=== PATIENT | male | born 1990 | race Caucasian/White ===

== ENCOUNTER 2024-08-16 12:41 | Emergency (ER) | payer BC, SELFPAY ==
[2024-08-16] VITALS (34 sets, daily range): BP systolic 113–162; BP diastolic 60–96; PULSE 45–70; TEMP 36.6; O2SAT 94–100; BMI 30.5
--- NOTE | 2024-08-16 12:54 | ECG_ITS ---
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 Measurements Intervals [place] Rate: 53 P: 47 AR: 160 QRS: 63 QRSD: 98 T: 57 QT: 410 QTc: 394 Interpretive Statements 1100 Sinus rhythm 9110 normal ECG No previous ECG available for comparison Electronically Signed On 08-16-2024 18:44:25 EDT by STEPHANIE ARRIAZA M.D.
--- NOTE | 2024-08-16 13:09 | ED.GENADUL1 ---
HPI HPI - General Adult General Chief complaint: Dizziness Stated complaint: HEADACHE, LIGHT HEADED Time Seen by Provider: 08/16/24 12:54 Source: patient Mode of arrival: walk-in Limitations: no limitations History of Present Illness HPI narrative: Patient is a 34-year-old male who is presenting today after a near syncopal episode. 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 Patient had an episode where he became diaphoretic, lightheaded, felt like he was going to pass out. This episode happened approximately 1 month ago as well. Patient went to [facility] at that time. Patient had a poor experience. Patient was in the hallway, had an x-ray, and IV, when he came back from x-ray they did not hook him back up to the IV and he was told he did not have a stroke, heart attack, and he was good to be discharged. Patient did follow-up with assistant office manager several weeks ago. Patient was going to have an outpatient stress test and echocardiogram ordered which she has not ordered yet. is at bedside. Patient does smoke marijuana, no alcohol. Patient quit smoking alcohol over years ago, patient was a daily drinker. Patient does vape, does not smoke cigarettes. No recent traveling. No head injury. Patient takes no medications daily patient currently has bilateral frontal headache, he did not have a headache last month when he had this episode. Patient felt like he was listening in a tunnel and looking into tunnel during this episode which was similar to 1 month ago as well. Patient did have when I perform HPI at approximately 1320 blurry vision to the periphery, his vision has improved and is back to normal baseline. All systems are negative except as noted/marked. All systems reviewed and otherwise negative. Nurses note and vital signs reviewed and patient is not hypoxic. General: The patient appears well and in no apparent distress. Patient is resting comfortably on cart. Patient is not toxic, lethargic, or listless Skin: Warm, dry, no pallor noted. There is no rash noted. No petechiae, purpura. Head: Normocephalic, atraumatic; no carotid bruits bilateral. Patient does not have reproducible tenderness to palpation to bilateral frontal or maxillary group. Eye: Normal conjunctiva, no drainage, EOMI. PERRL. Ears, Nose, Mouth, and Throat: oral mucosa is moist. Minimal clear drainage to the posterior pharynx. Nares patent. Mouth without vesicles. Cardiovascular: Regular Rate and Rhythm, no murmur, gallop, rub. no reproducible tenderness palpation to bilateral anterior, lateral, posterior chest wall.. Respiratory: Patient is in no distress, no accessory muscle use, lungs are clear to auscultation, no wheezing, rales or rhonchi Back: non-tender, no CVA tenderness bilaterally to percussion. No CT LS midline pain. GI: no tenderness to palpation, no masses appreciated. No rebound, guarding, or rigidity noted. No distention. Musculoskeletal: Patient has full range of motion of all of the extremities, no motor, sensory, or focal neurological deficits. Neurological: A&O x4, normal speech; NIH 0. Psychiatric: Cooperative Related Data Previous Rx's ?Medication ?Instructions ?Recorded prochlorperazine maleate 10 mg 10 mg PO Q12H PRN nausea and 08/16/24 tablet (Compazine) vomiting, headache 7 days #7 tabs Allergies Allergy/AdvReac Type Severity Reaction Status Date / Time No Known Drug Allergies Allergy Verified 08/16/24 12:48 Opioid HPI Opioid Management Most Recent Opioid Data: Last Pain Scale 9 Today, 13:59 Last MAR Pain Assessment Today, 13:59 PFSH PFSH Social History Little interest or pleasure in doing things: not at all Feeling down, depressed, or hopeless: not at all Exam Constitutional Vital Signs, click to edit/add: Last Vital Signs Temp 97.8 F 08/16/24 12:45 Pulse 55 L 08/16/24 16:00 Resp 19 08/16/24 16:00 BP 128/87 08/16/24 16:00 Pulse Ox 97 08/16/24 16:00 O2 Del Method Nasal Cannula 08/16/24 12:45 Course Vital Signs Vital signs: Vital Signs Temperature 97.8 F 08/16/24 12:45 Pulse Rate 59 L 08/16/24 12:45 Respiratory Rate 18 08/16/24 12:45 Blood Pressure 162/84 H 08/16/24 12:45 Pulse Oximetry 100 08/16/24 12:45 Oxygen Delivery Method Nasal Cannula 08/16/24 12:45 Temperature 97.8 F 08/16/24 12:45 Pulse Rate 55 L 08/16/24 16:00 Respiratory Rate 19 08/16/24 16:00 Blood Pressure 128/87 08/16/24 16:00 Pulse Oximetry 97 08/16/24 16:00 Oxygen Delivery Method Nasal Cannula 08/16/24 12:45 Medical Decision Making [facility] Narrative Medical decision making narrative: Patient seen and examined: Cardiac/stroke workup. Patient on CAT scan of the chest. Differential diagnosis includes but is not limited to: Syncope, electrolyte abnormality, dehydration, orthostasis, arrhythmia Diagnostics and management: Patient will have laboratory studies Relevant laboratory interpretation: Mg 1.7. Radiological studies: Please see the formal radiological report. CT of the head and CTA of the chest showed no acute findings. Reevaluation: 5223 I had a 10-minute discussion with patient at bedside discussing headache, CT report of the head, CT of the chest, lab work, bradycardia and possible etiologies. We were able to set patient up with a 7-day Holter monitor. We discussed recommendation for admission by myself for bradycardia that is symptomatic versus going home with Holter monitor, following up with assistant office manager and PCP. Patient lives in [place]. I told the patient that the safest and recommended thing to do is call her assistant office manager on-call today, we may be able to admit him to the hospital overnight at [place] but potentially transfer him to [place] for additional testing. The other option was going home with Holter monitor, increase fluids, follow-up with assistant office manager next week. Patient understands a safe and recommended thing to do is to be admitted to the hospital, however patient would rather go home. is at bedside. All the patient's lab work did not show any significant findings. Patient will be getting additional medication to help with headache. I will discussed with patient again at approximately 1530 if he still would like to be discharged. Shared decision making was done, patient has functional decision-making capacity to want to be discharged. Patient very pleasant to speak with along with his . 1610 I had a discussion with patient and his again. Patient headache is down to 1/10. Patient feels significantly better. Patient would like to go home. Patient has a Holter monitor in place. Patient understands strict return precautions including passing out again, diaphoresis, nausea vomiting, headache, or any other acute complaints. Patient Is going to call his cardiology office when he is discharged the office is open till 5 PM. Patient and his are extremely thankful for time and care spent today. , Shared decision making: I discussed with the patient the necessary laboratory findings and radiological findings. Social barriers to healthcare: There are no food insecurities, there is no issue with transportation, there are no insurance barriers. Patient was initially given 1 L of IV fluids and Tylenol for headache. Patient was reassessed, patient was given second round of medication of IV Compazine, IV Toradol, and finishing IV fluids along with IV magnesium over 15 minutes. Magnesium was at 1.7 Critical care time 31 minutes exclusive from separate billable procedures that were performed. The following was considered in the determination of critical care but not limited to the level of medical decision making, intensive cardiac and/or respiratory monitoring, frequent vital sign monitoring, evaluation of laboratory studies, evaluation of radiographic studies, oxygen monitoring, and constant monitoring and speaking to family at bedside Disposition: I discussed with the patient and his possible differentials. Patient had a very brief moment when his heart rate was in the 40s when he was sitting there with chest, RN at bedside. This lasted less than a minute. Patient's orthostatics were negative. Patient will have a CT of the head and a CTA of the chest to rule out any other acute pathology. Lab Data Labs: Lab Results 08/16/24 Range/Units 13:16 WBC 6.9 (4.0-11.0) 10^3/uL RBC 5.32 (4.70-6.10) 10^6/uL Hgb 16.1 (14.0-18.0) g/dL Hct 46.4 (42.0-54.0) % MCV 87.2 (80.0-94.0) fL MCH 30.3 (25.9-34.0) pg MCHC 34.7 (29.9-35.2) g/dL RDW 13.8 (11.0-15.0) % Plt Count 292 (150-450) 10^3/uL MPV 10.5 (9.5-13.5) fL Neut % (Auto) 67.8 (43.0-75.0) % Lymph % (Auto) 22.6 (20.5-60.0) % [place] % (Auto) 6.5 (1.7-12.0) % Eos % (Auto) 2.7 (0.9-7.0) % Baso % (Auto) 0.3 (0.2-2.0) % Neut # (Auto) 4.7 (1.4-6.5) 10^3/uL Lymph # (Auto) 1.6 (1.2-3.8) 10^3/uL [place] # (Auto) 0.5 (0.3-0.8) 10^3/uL Eos # (Auto) 0.2 (0.0-0.7) 10^3/uL Baso # (Auto) 0.0 (0.0-0.1) 10^3/uL Abs Immat Gran (auto) 0.01 (0.00-0.03) 10^3/uL Imm/Tot Granulo (auto) 0.1 (0.0-0.5) % D-Dimer <0.19 (<=0.59) mg/L FEU Sodium 134 L (136-145) mmol/L Potassium 3.7 (3.5-5.1) mmol/L Chloride 98 (98-107) mmol/L Carbon Dioxide 28.0 (21.0-32.0) mmol/L Anion Gap 11.7 BUN 11.0 (7.0-18.0) mg/dL Creatinine 0.97 (0.70-1.30) mg/dL Est GFR ( Amer) >60 (>=60 mL/min/1.73m^2) Est GFR (Non-Af Amer) >60 (>=60 mL/min/1.73m^2) BUN/Creatinine Ratio 11.3 Glucose 108 H (74-106) mg/dL Calcium 9.1 (8.5-10.1) mg/dL Magnesium 1.7 L (1.8-2.4) mg/dL Total Bilirubin 0.7 (0.2-1.0) mg/dL AST 47 H (15-37) U/L ALT 110 H (16-63) U/L Alkaline Phosphatase 47 (46-116) U/L Troponin I High Sens <4.0 L (4.0-76.1) pg/mL Total Protein 7.3 (6.4-8.2) g/dL Albumin 4.2 (3.4-5.0) g/dL Globulin 3.1 g/dL Albumin/Globulin Ratio 1.4 ECG Data Attestation: I personally reviewed and interpreted this ECG as follows: (EKG interpretation. Normal sinus rhythm at 53 beats a minute. Normal axis deviation. No acute ST elevation, no acute ectopy. QTc of 394) Interpretation: EKG #2. Sinus bradycardia at 46 beats a minute. Normal axis deviation. No acute ST elevation, no acute ectopy. QTc of 403. No evidence of AV block. Discharge Plan Discharge Chief Complaint: Dizziness Clinical Impression: Near syncope, Bradycardia, Headache Patient Disposition: Home, Self-Care Time of Disposition Decision: 16:06 Condition: Fair Prescriptions / Home Meds: New prochlorperazine maleate [Compazine] 10 mg tablet 10 mg PO Q12H PRN (Reason: nausea and vomiting, headache) 7 Days Qty: 7 0RF Print Language: Welsh Instructions: Syncope (ED), Bradycardia (ED), Near Syncope (ED), Tilt Table Test (DC) Additional Instructions: Increase fluids. If you continue to have syncopal episodes, headache returns, or any other acute concerns, return back to the ER immediately. You are wearing the Holter monitor for 7 days. Instructions have been given to you at bedside. Follow-up and call your assistant office manager for further testing as well. Establish PCP to help with additional health care as well. Use Compazine if needed for nausea, vomiting or if headache returns. Increase fluids, Gatorade, Powerade, water. Referrals: Physician,Non-Staff, MD [Primary Care Provider] - 1 week
[2024-08-16 13:28] LABS: Basophils Percent Auto 0.3 % (0.2-2.0); Eosinophils Absolute Auto 0.2 10^3/uL (0.0-0.7); Eosinophils Percent Auto 2.7 % (0.9-7.0); Hematocrit 46.4 % (42.0-54.0); Hemoglobin 16.1 g/dL (14.0-18.0); Immature Granulocytes Abs Auto 0.01 10^3/uL (0.00-0.03); Immature Granulocytes Pct Auto 0.1 % (0.0-0.5); Lymphocytes Absolute Auto 1.6 10^3/uL (1.2-3.8); Lymphocytes Percent Auto 22.6 % (20.5-60.0); Mean Corpuscular HGB Conc 34.7 g/dL (29.9-35.2); Mean Corpuscular Hemoglobin 30.3 pg (25.9-34.0); Mean Corpuscular Volume 87.2 fL (80.0-94.0); Mean Platelet Volume 10.5 fL (9.5-13.5); Monocytes Absolute Auto 0.5 10^3/uL (0.3-0.8); Monocytes Percent Auto 6.5 % (1.7-12.0); Neutrophils Absolute Auto 4.7 10^3/uL (1.4-6.5); Neutrophils Percent Auto 67.8 % (43.0-75.0); Platelet Count 292 10^3/uL (150-450); Red Blood Count 5.32 10^6/uL (4.70-6.10); Red Cell Distribution Width 13.8 % (11.0-15.0); White Blood Count 6.9 10^3/uL (4.0-11.0)
[2024-08-16 13:48] LABS: Alanine Aminotransferase 110 U/L (16-63); Albumin Globulin Ratio 1.4; Albumin Level 4.2 g/dL (3.4-5.0); Alkaline Phosphatase 47 U/L (46-116); Anion Gap 11.7; Aspartate Amino Transferase 47 U/L (15-37); BUN Creatinine Ratio 11.3; Bilirubin Total 0.7 mg/dL (0.2-1.0); Calcium 9.1 mg/dL (8.5-10.1); Chloride 98 mmol/L (98-107); Estimated GFR (African America >60 (>=60 mL/min/1.73m^2); Estimated GFR (Non-African Ame >60 (>=60 mL/min/1.73m^2); Globulin 3.1 g/dL; Glucose 108 mg/dL (74-106); Magnesium 1.7 mg/dL (1.8-2.4); Potassium 3.7 mmol/L (3.5-5.1); Sodium 134 mmol/L (136-145); Total Protein 7.3 g/dL (6.4-8.2); Troponin I High Sensitivity <4.0 pg/mL (4.0-76.1)
[2024-08-16] MEDS: ACETAMINOPHEN 500 MG TABLET 1000 MG PO (13:59)
[2024-08-16] MEDS: 0.9 % SODIUM CHLORIDE 1,000 ML 1000 ML IV (13:59)
--- NOTE | 2024-08-16 14:30 | ECG_ITS ---
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 Measurements Intervals [place] Rate: 46 P: 40 MD: 144 QRS: 62 QRSD: 96 T: 53 QT: 444 QTc: 403 Interpretive Statements 1130 Sinus bradycardia 9140 abnormal rhythm ECG Compared to ECG 08/16/2024 12:51:40 Heart rate has decreased Electronically Signed On 08-18-2024 12:33:33 EDT by STEPHANIE ARRIAZA M.D.
[2024-08-16] MEDS: KETOROLAC TROMETHAMINE 30 MG/ML VIAL 15 MG IVP (14:49)
[2024-08-16] MEDS: PROCHLORPERAZINE 10 MG/2 ML VIAL 5 MG IV (14:49)
[2024-08-16 15:17] LABS: D Dimer <0.19 mg/L FEU (<=0.59)
[2024-08-16] MEDS: MAGNESIUM SULFATE IN WATER 2 GM/50 ML PREMIX 3.3 GM IV (15:19)
== END 2024-08-16 16:22 | disposition home or self-care (01) ==
PROVIDERS: Emergency Provider Emergency Medicine
DX: R55 Syncope and collapse (principal); R51.9 Headache, unspecified; R00.1 Bradycardia, unspecified; F17.290 Nicotine dependence, other tobacco product, uncomplicated
CPT/HCPCS: 36415; 70450; 71275; 80053; 81001; 83735; 83880; 84484; 85025; 85378; 93005; 93242; 96361; 96365; 96375; 99285; J0780; J1885; J3475; Q9967